=== PATIENT | male | born 1955 | race Caucasian/White ===

== ENCOUNTER 2018-03-04 10:35 | Inpatient (IN) | payer BC ==
[~2018-03-04] VITALS: Ht 195.6 cm; Wt 108.9 kg
[2018-03-04 10:35] VITALS: BP_SYST 146
[2018-03-04] MEDS ORDERED: DILTIAZEM HCL 25 MG/5 ML VIAL ONE (10:47)
[2018-03-04 11:09] LABS: BASOPHILS % (AUTO) 0.4 % (0.0-2.0); CALCIUM 8.9 mg/dL (8.4-11.0); CREATININE 0.97 mg/dL (0.55-1.30); EOSINOPHILS # (AUTO) 0.1 K/uL (0.0-0.4); EOSINOPHILS % (AUTO) 0.7 % (0.0-4.0); HEMATOCRIT 41.9 % (36-54); HEMOGLOBIN 14.3 g/dL (14.0-18.0); LYMPHOCYTES # (AUTO) 0.6 K/uL (1.0-5.5); LYMPHOCYTES % (AUTO) 6.5 % (20.5-51.5); MEAN CORPUSCULAR HEMOGLOBIN 35 pg (27-31); MEAN CORPUSCULAR HGB CONC 34 % (32-36); MEAN CORPUSCULAR VOLUME 103 fL (79.0-98.0); MONOCYTES # (AUTO) 0.5 K/uL (0.0-1.0); MONOCYTES % (AUTO) 6.3 % (1.7-9.3); NEUTROPHILS # (AUTO) 7.5 K/uL (1.8-7.7); NEUTROPHILS % (AUTO) 86.1 % (40.0-70.0); PLATELET COUNT (AUTO) 327 K/uL (130-430); POTASSIUM 3.9 mmol/L (3.5-5.1); RED BLOOD CELL COUNT(AUTO) 4.07 MIL/uL (4.2-6.2); RED CELL DISTRIBUTION WIDTH 14.2 % (9.0-15.0); WHITE BLOOD COUNT (AUTO) 8.7 K/uL (4.8-10.8)
[2018-03-04 11:14] LABS: ALBUMIN 3.8 g/dL (3.4-4.8); TOTAL BILIRUBIN 1.4 mg/dL (0.0-1.0)
[2018-03-04] MEDS ORDERED: DILTIAZEM HCL 25 MG/5 ML VIAL IVP ONE ×2 (11:15→11:30)
[2018-03-04] MEDS ORDERED: NACL 0.9% 1,000 ML IV ONE (11:15)
[2018-03-04 11:19] LABS: INR 0.9 (0.80-1.20); PROTHROMBIN TIME 9.6 SECS (9.5-12.5)
[2018-03-04] MEDS ORDERED: GLU500 PO (12:00)
[2018-03-04] MEDS ORDERED: ASPI-1063 PO (12:00)
[2018-03-04] MEDS ORDERED: HYD500 PO ×2 (12:00)
[2018-03-04 13:33] VITALS: BP_SYST 149
[2018-03-04] MEDS ORDERED: ZOLPIDEM TARTRATE 5 MG TABLET PO PRN (13:45)
[2018-03-04] MEDS ORDERED: DEXTROSE 50% JECT 50 ML DISP.SYRIN IVP PRN (13:45)
[2018-03-04] MEDS ORDERED: DILTIAZEM HCL 120 MG CAP.SR.24H PO ONE (14:45)
[2018-03-04] MEDS: ACETAMINOPHEN 325 MG TABLET PO PRN (15:03)
[2018-03-04 16:27] VITALS: BP_SYST 138
[2018-03-04] MEDS: metFORMIN HCL 500 MG TABLET PO SCH (17:02)
[2018-03-04] MEDS ORDERED: APIXABAN 2.5 MG TABLET PO ONE (17:45)
[2018-03-04 19:00] VITALS: BP_SYST 136
[2018-03-04 20:00] VITALS: BP_SYST 136
[2018-03-04] MEDS ORDERED: APIXABAN 2.5 MG TABLET PO SCH (21:00)
[2018-03-04] MEDS: APIXABAN 2.5 MG TABLET PO SCH (21:20)
[2018-03-04] MEDS: DILTIAZEM HCL 120 MG CAP.SR.24H PO SCH (21:20)
[2018-03-04] MEDS: traMADol HCL HCL 50 MG TABLET (ULTRAM) PO PRN (21:22)
[2018-03-04 23:23] VITALS: BP_SYST 137
[2018-03-05] MEDS: traMADol HCL HCL 50 MG TABLET (ULTRAM) PO PRN ×4 (04:28→16:11)
[2018-03-05 06:47] LABS: BASOPHILS % (AUTO) 0.4 % (0.0-2.0); EOSINOPHILS % (AUTO) 0.6 % (0.0-4.0); HEMATOCRIT 38.6 % (36-54); LYMPHOCYTES # (AUTO) 0.8 K/uL (1.0-5.5); LYMPHOCYTES % (AUTO) 12.5 % (20.5-51.5); MEAN CORPUSCULAR HEMOGLOBIN 35 pg (27-31); MEAN CORPUSCULAR HGB CONC 34 % (32-36); MEAN CORPUSCULAR VOLUME 104 fL (79.0-98.0); MONOCYTES # (AUTO) 0.8 K/uL (0.0-1.0); MONOCYTES % (AUTO) 11.5 % (1.7-9.3); NEUTROPHILS # (AUTO) 4.9 K/uL (1.8-7.7); PLATELET COUNT (AUTO) 263 K/uL (130-430); RED BLOOD CELL COUNT(AUTO) 3.71 MIL/uL (4.2-6.2); WHITE BLOOD COUNT (AUTO) 6.5 K/uL (4.8-10.8)
[2018-03-05 07:16] LABS: ANION GAP 7 (5-15); CALCIUM 8.3 mg/dL (8.4-11.0); CHLORIDE 105 mmol/L (98-107); CREATININE 0.79 mg/dL (0.55-1.30); GLUCOSE 120 mg/dL (70-99); SODIUM SERUM 139 mmol/L (136-145); UREA NITROGEN, BLOOD 14 mg/dL (8-21)
[2018-03-05 07:22] LABS: GFR AFRICAN AMERICAN 127 mL/min (>90)
[2018-03-05 07:33] LABS: THYROID STIMULATING HORMONE 1.11 uIu/mL (0.36-3.74)
[2018-03-05 08:09] LABS: CHOLESTEROL 126 mg/dL (<200); HDL CHOLESTEROL 62 mg/dL (>45); LDL CHOLESTEROL 61 mg/dL (<100); TRIGLYCERIDES 45 mg/dL (30-150)
[2018-03-05] MEDS: APIXABAN 2.5 MG TABLET PO SCH ×2 (08:24→21:27)
[2018-03-05] MEDS: HYDROXYUREA 500 MG CAPSULE (HYDREA) PO SCH (08:24)
[2018-03-05] MEDS: metFORMIN HCL 500 MG TABLET PO SCH ×2 (08:25→17:42)
[2018-03-05] MEDS: ASPIRIN 81 MG TABLET(ECOTRIN) PO SCH (08:25)
[2018-03-05] MEDS: DILTIAZEM HCL 120 MG CAP.SR.24H PO SCH ×2 (08:25→21:28)
[2018-03-05] MEDS ORDERED: DILTIAZEM HCL 120 MG CAP.SR.24H PO SCH (09:00)
[2018-03-05 09:10] VITALS: BP_SYST 120
[2018-03-05] MEDS: INSULIN REGULAR, HUMAN 100 UNITS/ML, 10 ML VIAL (novoLIN R) SUBCUT PRN ×2 (11:25→21:30)
[2018-03-05 12:07] VITALS: BP_SYST 119
[2018-03-05 16:55] VITALS: BP_SYST 129
[2018-03-05 20:00] VITALS: BP_SYST 102
[2018-03-06 01:00] VITALS: BP_SYST 115
[2018-03-06] MEDS: ACETAMINOPHEN 325 MG TABLET PO PRN ×2 (02:34→12:03)
[2018-03-06] MEDS: INSULIN REGULAR, HUMAN 100 UNITS/ML, 10 ML VIAL (novoLIN R) SUBCUT PRN (06:15)
[2018-03-06 07:55] VITALS: BP_SYST 121
[2018-03-06] MEDS: HYDROXYUREA 500 MG CAPSULE (HYDREA) PO SCH (08:32)
[2018-03-06] MEDS: ASPIRIN 81 MG TABLET(ECOTRIN) PO SCH (08:33)
[2018-03-06] MEDS: APIXABAN 2.5 MG TABLET PO SCH (08:33)
[2018-03-06] MEDS: metFORMIN HCL 500 MG TABLET PO SCH (08:33)
[2018-03-06] MEDS: DILTIAZEM HCL 120 MG CAP.SR.24H PO SCH (08:36)
[2018-03-06 12:56] VITALS: BP_SYST 128
[2018-03-06 13:35] VITALS: BP_SYST 128
[2018-03-07] MEDS ORDERED: HYDROXYUREA 500 MG CAPSULE (HYDREA) PO SCH (09:00)
== END 2018-03-06 14:15 | disposition home or self-care (01) | DRG 309 ==
LOC: SED 10:35 → STU 12:35
PROVIDERS: ADMIT Internal Medicine; ATTEND Internal Medicine
DX: I48.0 Paroxysmal atrial fibrillation (principal); D68.59 Other primary thrombophilia; D47.3 Essential (hemorrhagic) thrombocythemia; E11.9 Type 2 diabetes mellitus without complications; I10 Essential (primary) hypertension; Z79.82 Long term (current) use of aspirin; Z79.84 Long term (current) use of oral hypoglycemic drugs; Z79.899 Other long term (current) drug therapy; Z82.49 Family history of ischemic heart disease and other diseases of the circulatory system
CPT/HCPCS: 36415; 70450-TC; 71045; 80048; 80053; 80061; 82962; 83880; 84443-TC; 84484; 85025; 85379; 85610-TC; 85730-TC; 93005; 93306; 96361; 96374; 96375; 99285; J1815; J3490; J7030

== ENCOUNTER 2020-03-20 14:13 | Inpatient (IN) | payer OTHER, BC, SELFPAY ==
[~2020-03-20] VITALS: Ht 195.6 cm; Wt 113.4 kg
[~2020-03-20 14:13] MED LIST: ASPI-1153 PO; GLU500 PO; HYD500 PO
--- NOTE | 2020-03-20 14:15 | NUR ---
Placed in room 03 . Placed on monitor car operator, blood pressure machine and pulse oximeter. To gown for exam. Side rails up.
--- NOTE | 2020-03-20 14:16 | NUR ---
ER Dr. Arredondo at bedside examining patient.
--- NOTE | 2020-03-20 14:16 | NUR ---
Patient came from home for evaluation. Patient is complaining of dizziness, nausea, and weakness when standing. He reports that he is fine when standing and lying down, symptoms started this morning. Nystagmus noted in right eye.
[2020-03-20 14:23] VITALS: BP_SYST 122
[2020-03-20] MEDS ORDERED: DILTIAZEM HCL 25 MG/5 ML VIAL IVP ONE (14:45)
[2020-03-20 14:56] LABS: BASOPHILS % (AUTO) 0.4 % (0.0-2.0); EOSINOPHILS # (AUTO) 0.1 K/uL (0.0-0.4); EOSINOPHILS % (AUTO) 0.9 % (0.0-4.0); HEMATOCRIT 42.3 % (36-54); HEMOGLOBIN 14.3 g/dL (14.0-18.0); LYMPHOCYTES % (AUTO) 33.8 % (20.5-51.5); MEAN CORPUSCULAR HEMOGLOBIN 36 pg (27-31); MEAN CORPUSCULAR HGB CONC 34 % (32-36); MEAN CORPUSCULAR VOLUME 107 fL (79.0-98.0); MONOCYTES # (AUTO) 0.8 K/uL (0.0-1.0); MONOCYTES % (AUTO) 12.6 % (1.7-9.3); NEUTROPHILS # (AUTO) 3.1 K/uL (1.8-7.7); NEUTROPHILS % (AUTO) 52.3 % (40.0-70.0); PLATELET COUNT (AUTO) 421 K/uL (130-430); RED BLOOD CELL COUNT(AUTO) 3.95 MIL/uL (4.2-6.2); RED CELL DISTRIBUTION WIDTH 13.8 % (9.0-15.0)
[2020-03-20 15:03] LABS: CALCIUM 8.6 mg/dL (8.4-11.0); CREATININE 1.41 mg/dL (0.55-1.30); POTASSIUM 3.9 mmol/L (3.5-5.1)
[2020-03-20 15:07] LABS: PROTHROMBIN TIME 10.2 SECS (9.5-12.5)
[2020-03-20 15:09] LABS: ALBUMIN 3.2 g/dL (3.4-4.8); TOTAL BILIRUBIN 0.7 mg/dL (0.0-1.0)
[2020-03-20] MEDS ORDERED: APIX5TAB4 PO (15:52)
[2020-03-20] MEDS ORDERED: FURO-150 PO (15:52)
[2020-03-20] MEDS ORDERED: [UNRECOGNIZED DRUG - OTHER] TD (15:52)
--- NOTE | 2020-03-20 15:52 | NUR ---
Medication reconciliation completed with information provided by patient. Any prior medication reconciliation on file was reviewed and corrected.
--- NOTE | 2020-03-20 16:04 | NUR ---
Patient transported to radiology via gurney, accompanied by automotive paint technician.
[2020-03-20] MEDS ORDERED: DEXTROSE 50% JECT 50 ML DISP.SYRIN IVP PRN (18:00)
[2020-03-20] MEDS ORDERED: INSULIN REGULAR, HUMAN 100 UNITS/ML, 10 ML VIAL (humuLIN R) SUBCUT PRN (18:00)
--- NOTE | 2020-03-20 18:40 | NUR ---
Dinner tray provided.
--- NOTE | 2020-03-20 19:15 | NUR ---
Report given to RHIANNON Davison for continuation of care.
--- NOTE | 2020-03-20 19:19 | NUR ---
recieved report. pt is in rney with side rails up. Monitor on with sinus rhythm noted. VSS. Alert and oriented. able to make needs known. pt is eating.
[2020-03-20 20:29] VITALS: BP_SYST 119
--- NOTE | 2020-03-20 20:29 | NUR ---
Admission Note Received patient from ER with diagnosis of AFIB. Initial Plan of Care discussed-patient verbalized understanding. Oriented to room, call light, pain management and safety.
[2020-03-20 20:34] VITALS: BP_SYST 119
[2020-03-20] MEDS: METOPROLOL TARTRATE 25 MG TABLET PO SCH (22:13)
--- NOTE | 2020-03-20 23:00 | NUR ---
ROUNDS/ROOM TRANSFER/VITALS/ACCUCHECK pt resting in be at this time, no signs of discomfort noted. pt moved to room 110A via gurney, all personal belongings with pt. vital signs and accucheck done at this time, both wnl. safety and fall precautions maintained. will continue to monitor.
[2020-03-21] VITALS: BP_SYST 110
--- NOTE | 2020-03-21 00:27 | NUR ---
Patient will be admitted to care of fast food worker. Admitted to Tele unit. Will go to room 118. Belongings list completed. Complete and up to date summary report printed. SBAR report to be given at bedside with opportunity for questions.
--- NOTE | 2020-03-21 01:00 | NUR ---
ROUNDS pt resting in bed at this time. no signs of acute distress noted. safety and fall precautions in place. will continue to monitor.
--- NOTE | 2020-03-21 03:00 | NUR ---
ROUNDS pt resting in bed, no signs of discomfort. safety and fall precautions in place, will continue to monitor.
--- NOTE | 2020-03-21 05:00 | NUR ---
ROUNDS Patient asleep. No signs of discomfort noted. Chest rise and fall even bilaterally. Call light with patient. Will continue to monitor.
--- NOTE | 2020-03-21 06:11 | NUR ---
CLOSING NOTES Patient in bed, resting. No s/s of acute distress noted, patient denies pain. Breathing even and unlabored. Skin warm and dry to touch. All needs met throughout shift. Fall and safety precautions maintained throughout shift. Will continue to monitor until patient care is endorsed to the day shift nurse.
[2020-03-21 08:00] VITALS: BP_SYST 107
--- NOTE | 2020-03-21 08:00 | NUR ---
initial notes rec patient awake alert with ivl on the l forearm. no infiltration noted. denies pain at this time. resp easy and unlabored. bed to the lowest position and side rails up and locked. call light within reached and knows when to call for help.
[2020-03-21] MEDS: ASPIRIN 81 MG TABLET(ECOTRIN) PO SCH (08:54)
[2020-03-21] MEDS: FUROSEMIDE 20 MG TABLET PO SCH (08:55)
[2020-03-21] MEDS: METOPROLOL TARTRATE 25 MG TABLET PO SCH (08:55)
--- NOTE | 2020-03-21 09:20 | NUR ---
CONSULTATION PAGED REASON FOR CONSULTATION:RULE OUT COVID WAS CONSULT CALLED?Y PERSON WHO WAS NOTIFIED:PAGED ''S PAGER CONSULTING PHYSICIAN:CLAUDE CLEMENS FIELD SPECIALIST SPECIALTY:PULMONARY FIELD SPECIALIST PHONE NUMBER:[phone] ORDERING PHYSICIAN:VANESA ROBLES
--- NOTE | 2020-03-21 09:26 | NUR ---
CONSULTATION PAGED REASON FOR CONSULTATION:RULE OUT COVID WAS CONSULT CALLED?Y PERSON WHO WAS NOTIFIED:LISA CONSULTING PHYSICIAN:CARLOS OJEDA GENETIC COORDINATOR SPECIALTY:INFECTIOUS DISEASE GENETIC COORDINATOR PHONE NUMBER:[phone] ORDERING PHYSICIAN:VANESA ROBLES
--- NOTE | 2020-03-21 09:30 | NUR ---
transfer of care pt was wheeled to rm [address] lynn. pt will be tested for covid by vick. pt no osb noted. ambulates at bedside and from bed to the br donovan well. no sob noted. stable, needs attended.
--- NOTE | 2020-03-21 09:46 | NUR ---
CONSULT CARDIOLOGY A FIB DR VINES [phone] [facility]
--- NOTE | 2020-03-21 10:30 | NUR ---
Note Received pt from previous RN - Kaykay at 0930am for continuation of care. Pt's Covid-19 test done and taken to lab at 0930am. Pt AAOX4 and ambulates in room and to restroom with steady gait. No needs noted at this time. Call light within reach.
[2020-03-21 11:52] VITALS: BP_SYST 134
--- NOTE | 2020-03-21 14:10 | NUR ---
Note Pt's EKG was done at bedside by RN. Results are in the pt chart. Pt was seen and assessed by Dr Dyer and Dr Bailey at bedside at 09am. Orders written and carried out. No needs noted at this time. Pt attending to self care and hygiene needs at sink in room. Call light within reach.
--- NOTE | 2020-03-21 14:50 | NUR ---
CONSULT CARDIOLOGY AFIB DR MARRUFO [phone] S/W [facility]
--- NOTE | 2020-03-21 15:26 | NUR ---
Note Dr Beavers at pt's bedside doing assessment and answering questions/concerns at this time.
[2020-03-21] MEDS ORDERED: DILTIAZEM HCL 120 MG CAP.SR.24H PO ONE (15:45)
[2020-03-21 16:00] VITALS: BP_SYST 147
[2020-03-21] MEDS ORDERED: APIXABAN 2.5 MG TABLET PO ONE (16:15)
--- NOTE | 2020-03-21 18:20 | NUR ---
Note Pt sitting on side of bed eating his dinner. Pt denies any SOB/resp distress or pain/discomfort noted at this time. Pt's IV in left forearm intact and patent at this time. Pt's tele unit attached and intact all shift. Pt was checked on q1' and PRN all shift for needs and care. Pt has been ambulating in room and restroom with steady gait. No needs noted at this time. Pt's bed in low position all shift. Pt maintained with isolation and safety precautions all shift. Call light within reach.
--- NOTE | 2020-03-21 18:50 | NUR ---
Note banking center managerRHIANNON Castillo stated pt is negative for COVID-19 at this time. Addendum: 03/21/20 at 1855 by Surekha Stoddard RN test was done today at 0920am.
--- NOTE | 2020-03-21 19:15 | NUR ---
PM SHIFT ASSESSMENT Pt is awake and alert. Pt is on RA, RR even and unlabored. AFIB noted on monitor. IV to LEFT FOREARM, FLUSHING WELL. Skin warm and dry. Safety precautions in place, call light within reach. Will continue to monitor.
[2020-03-21 20:15] VITALS: BP_SYST 136
[2020-03-21] MEDS: APIXABAN 2.5 MG TABLET PO SCH (21:17)
[2020-03-21] MEDS: SOTALOL (AF) 80 MG TABLET PO SCH (21:21)
--- NOTE | 2020-03-21 23:30 | NUR ---
EKG done by RT per MD order.
[2020-03-21 23:45] VITALS: BP_SYST 112
--- NOTE | 2020-03-22 01:30 | NUR ---
DR. Waqas CAMARGO HERE TO SEE PATIENT.
--- NOTE | 2020-03-22 03:11 | NUR ---
Pt sleeping in bed. No signs of SOB or acute distress. Safety precautions in place, call light within reach. Will continue to monitor.
--- NOTE | 2020-03-22 07:35 | NUR ---
ENDORSEMENT Pt care endorsed to dayshift RN using nursing SBAR.
[2020-03-22 07:45] LABS: ALBUMIN 3.2 g/dL (3.4-4.8); CREATININE 1.3 mg/dL (0.55-1.30); TOTAL BILIRUBIN 0.7 mg/dL (0.0-1.0)
[2020-03-22 08:00] VITALS: BP_SYST 124
[2020-03-22 08:18] LABS: POTASSIUM 5.5 mmol/L (3.5-5.1)
[2020-03-22] MEDS: ASPIRIN 81 MG TABLET(ECOTRIN) PO SCH (09:46)
[2020-03-22] MEDS: FUROSEMIDE 20 MG TABLET PO SCH (09:48)
[2020-03-22] MEDS: SOTALOL (AF) 80 MG TABLET PO SCH ×2 (09:50→21:15)
[2020-03-22] MEDS: APIXABAN 2.5 MG TABLET PO SCH ×2 (09:54→21:14)
[2020-03-22 12:21] VITALS: BP_SYST 114
[2020-03-22 16:26] VITALS: BP_SYST 118
[2020-03-22 20:00] VITALS: BP_SYST 135
--- NOTE | 2020-03-22 20:00 | NUR ---
Initial note. Received report from RHIANNON Patrick. Received lying in bed with eyes closed, easily aroused. Oriented x 4. No apparent distress, no c/o pain or discomfort. On room air, no respiratory distress noted. Able to ambulate without assist with steady gait. A-fib on tele monitor with HR in 120's. Saline lock intact and patent. Instructed on use of call light & to notify staff if in need of assistance. Verbalized understanding. Bed in low, locked position. Bed alarm on.
--- NOTE | 2020-03-22 21:15 | NUR ---
Due medications given as ordered. Tolerated well.
[2020-03-22 23:25] VITALS: BP_SYST 122
--- NOTE | 2020-03-23 06:24 | NUR ---
Fingerstick checked = 111 mg/dL. No s/s of hypo/hyperglycemia.
--- NOTE | 2020-03-23 06:54 | NUR ---
Closing note. Resting in bed with eyes closed, easily aroused. No c/o pain or discomfort. No shortness of breath noted. Heart rhythm remains uncontrolled a-fib on tele monitor. All needs attended to. Will give report to oncoming shift RN.
[2020-03-23 08:00] VITALS: BP_SYST 104
[2020-03-23] MEDS ORDERED: DILTIAZEM HCL 180 MG CAP.SR.24H PO ONE (09:00)
[2020-03-23] MEDS: FUROSEMIDE 20 MG TABLET PO SCH (09:07)
[2020-03-23] MEDS: ASPIRIN 81 MG TABLET(ECOTRIN) PO SCH (09:07)
[2020-03-23] MEDS: SOTALOL (AF) 80 MG TABLET PO SCH (09:08)
[2020-03-23] MEDS: APIXABAN 2.5 MG TABLET PO SCH (09:10)
[2020-03-23] MEDS ORDERED: SOTALOL HCL 80 MG TABLET PO SCH (09:52)
[2020-03-23] MEDS ORDERED: BET(AF)80 PO (10:02)
[2020-03-23] MEDS ORDERED: DILT180C67 PO (10:02)
[2020-03-23 10:58] VITALS: BP_SYST 104
[2020-03-23 11:08] LABS: CALCIUM 8.5 mg/dL (8.4-11.0); CREATININE 1.29 mg/dL (0.55-1.30); POTASSIUM 4.4 mmol/L (3.5-5.1)
--- NOTE | 2020-03-23 12:12 | NUR ---
D/C Patient Patient given medication reconciliation form, prescription, and D/C instructions. Exit Care provided. Patient verbalized understanding. MD discussed with patient the results and treatment provided. Ambulatory with steady gait for discharge to home. Patient in stable condition, ID band removed. IV catheter removed, intact and dressing applied, no active bleeding. Rx of given. Patient educated on pain management. All belongings sent with patient.
[2020-03-24] MEDS ORDERED: DILTIAZEM HCL 180 MG CAP.SR.24H PO SCH (09:00)
== END 2020-03-23 12:10 | disposition home or self-care (01) | DRG 308 ==
LOC: SED 14:13 → STU 17:06 → EEVIPCON 17:06 → STU 21:00
PROVIDERS: ADMIT Internal Medicine Hospice and Palliative Medicine; ATTEND Internal Medicine Hospice and Palliative Medicine
DX: I48.19 Other persistent atrial fibrillation (principal); I50.33 Acute on chronic diastolic (congestive) heart failure; J98.11 Atelectasis; I11.0 Hypertensive heart disease with heart failure; I47.1 Supraventricular tachycardia; D47.3 Essential (hemorrhagic) thrombocythemia; Z20.828 Contact with and (suspected) exposure to other viral communicable diseases; Z79.01 Long term (current) use of anticoagulants; Z79.899 Other long term (current) drug therapy; Z79.82 Long term (current) use of aspirin
CPT/HCPCS: 36415; 71045; 71250-TC; 80048; 80053; 82728; 82962; 83880; 84484; 85025; 85379; 85610-TC; 85651-TC; 85730-TC; 93005; 93306; 96374; 99291; G0378; J1815; J3490; U0003-CS